=== PATIENT | female | born 1985 | race American Indian/Alaskan Native ===

== ENCOUNTER 2018-04-23 00:38 | Emergency (ER) | payer MEDICAID ==
[2018-04-23] MEDS ORDERED: ULTRAM PO ONE (03:23)
[2018-04-23] MEDS ORDERED: NACL 0.9% 1000 ML 1,000 ML IV ONE (03:41)
--- NOTE | 2018-04-23 03:41 | Emergency Department Report ---
ED General Adult HPI - General Chief complaint: Headache Stated complaint: HEAD AND CHEST PAINS CONSTIPATION Time Seen by Provider: 04/23/18 03:20 Source: patient Mode of arrival: Ambulatory Limitations: No Limitations - History of Present Illness Initial comments: pt is a 32 y/o aaf who presents for abd pain 4/10 aching cramping and constipation x 1 month symptoms are improved with bowel movement symptoms are exacerbated by movement palpation there is associated nausea no vomiting. Onset/Timin -: month(s) Location: abdomen Radiation: non-radiation Severity scale (0 -10): 3 Quality: aching, other (cramping) Consistency: constant Improves with: other (defication) Worsens with: movement Associated Symptoms: headaches Treatments Prior to Arrival: none - Related Data Previous Rx's Medication Instructions Recorded Last Taken Type Ibuprofen 800 mg PO TID PRN #30 tablet 04/23/18 Unknown Rx Nitrofurantoin Monohyd/M-Cryst 100 mg PO BID 7 Days #14 capsule 04/23/18 Unknown Rx [Macrobid 100 mg Capsule] Polyethylene Glycol 3350 [Miralax 17 gm PO BID PRN #14 packet 04/23/18 Unknown Rx 3350] Allergies Allergy/AdvReac Type Severity Reaction Status Date / Time codeine Allergy Hives Verified 04/23/18 00:43 ED Review of Systems ROS: Stated complaint: HEAD AND CHEST PAINS CONSTIPATION Other details as noted in HPI Constitutional: denies: chills, fever Eyes: denies: eye pain, eye discharge, vision change ENT: denies: ear pain, throat pain Respiratory: denies: cough, shortness of breath, wheezing Cardiovascular: denies: chest pain, palpitations Endocrine: no symptoms reported Gastrointestinal: abdominal pain, nausea, constipation. denies: vomiting, di arrhea, hematemesis, melena, hematochezia Genitourinary: hematuria. denies: urgency, dysuria, frequency, discharge, abnormal menses, dyspareunia Musculoskeletal: denies: joint swelling, arthralgia Skin: denies: rash, lesions Neurological: headache. denies: weakness, paresthesias Psychiatric: denies: anxiety, depression Hematological/Lymphatic: denies: easy bleeding, easy bruising ED Past Medical Hx - Past Medical History Previous Medical History?: Yes Hx Hypertension: Yes - Surgical History Past Surgical History?: Yes Hx Breast Surgery: Yes (reduction) - Social History Smoking Status: Never Smoker Substance Use Type: None - Medications Home Medications: Home Medications Medication Instructions Recorded Confirmed Last Taken Type Ibuprofen 800 mg PO TID PRN #30 tablet 04/23/18 Unknown Rx Nitrofurantoin Monohyd/M-Cryst 100 mg PO BID 7 Days #14 capsule 04/23/18 Unk nown Rx [Macrobid 100 mg Capsule] Polyethylene Glycol 3350 [Miralax 17 gm PO BID PRN #14 packet 04/23/18 Unknown Rx 3350] ED Physical Exam - General Limitations: No Limitations General appearance: alert, in no apparent distress - Head Head exam: Present: atraumatic, normocephalic - Eye Eye exam: Present: normal appearance, PERRL, EOMI Pupils: Present: normal accommodation - ENT ENT exam: Present: normal orophraynx, mucous membranes moist, TM's normal bilaterally, normal external ear exam - Neck Neck exam: Present: normal inspection, full ROM - Respiratory Respiratory exam: Present: normal lung sounds bilaterally. Absent: respiratory distress, wheezes, stridor, chest wall tenderness - Cardiovascular Cardiovascular Exam: Present: regular rate, normal rhythm, normal heart sounds. Absent: systolic murmur, diastolic murmur, rubs, gallop - GI/Abdominal GI/Abdominal exam: Present: soft, normal bowel sounds. Absent: distended, tenderness, guarding, rebound, rigid, organomegaly, mass, bruit, hernia - Rectal Rectal exam: Present: deferred - Extremities Exam Extremities exam: Present: normal inspection, full ROM, normal capillary refill. Absent: tenderness, pedal edema, joint swelling, calf tenderness - Back Exam Back exam: Present: normal inspection, full ROM, tenderness. Absent: CVA tenderness (R), CVA tenderness (L) - Neurological Exam Neurological exam: Present: alert, oriented X3, CN II-XII intact, reflexes normal. Absent: motor sensory deficit - Psychiatric Psychiatric exam: Present: normal affect, normal mood - Skin Skin exam: Present: warm, dry, intact, normal color. Absent: rash ED Course Vital Signs 04/23/18 00:40 Temperature 97.8 F Pulse Rate 87 Respiratory 18 Rate Blood Pressure 137/75 O2 Sat by Pulse 98 Oximetry ED Medical Decision Making - Lab Data Result diagrams: 04/23/18 03:28 04/23/18 03:28 Labs 04/23/18 04/23/18 04/23/18 02:00 03:28 03:28 WBC 10.4 RBC 4.52 Hgb 13.7 Hct 39.7 MCV 88 MCH 30 MCHC 34 RDW 13.2 Plt Count 289 Lymph % (Auto) 42.8 H [place] % (Auto) 6.0 Eos % (Auto) 1.3 Baso % (Auto) 2.0 H Lymph # 4.5 Benzie # 0.6 Eos # 0.1 Baso # 0.2 H Seg Neutrophils % 47.9 Seg Neutrophils # 5.0 Sodium 135 L Potassium 3.8 Chloride 97.4 L Carbon Dioxide 25 Anion Gap 16 BUN 12 Creatinine 0.7 Estimated GFR > 60 BUN/Creatinine Ratio 17 Glucose 96 Calcium 9.6 Total Bilirubin 0.30 AST 17 ALT 17 Alkaline Phosphatase 68 Total Protein 7.9 Albumin 4.5 Albumin/Globulin Ratio 1.3 Lipase 33 Urine Color Yellow Urine Turbidity Cloudy Urine pH 5.0 Ur Specific [place] 1.029 Urine Protein 30 mg/dl Urine Glucose (UA) Neg Urine Ketones Neg Urine Blood Neg Urine Nitrite Neg Urine Bilirubin Neg Urine Urobilinogen 2.0 Ur Leukocyte Esterase Tr Urine WBC (Auto) 8.0 H Urine RBC (Auto) 4.0 U Epithel Cells (Auto) 21.0 H Urine Bacteria (Auto) 1+ Urine Mucus 1+ Urine HCG, Qual Negative - Radiology Data Radiology results: report reviewed, image reviewed cc: MORENA SMITH NP Fluoro Time In Minutes: PROCEDURE: XR CHEST ROUTINE 2V TECHNIQUE: PA and lateral views of the chest were similar. HISTORY: chest pain COMPARISONS: 12/06/2017 FINDINGS: The heart size and mediastinum appear normal. The lungs are not congested. There are no infiltrates or effusions. The skeletal structures reveal a dextroscoliosis of the mid dorsal spine. IMPRESSION: No acute cardiopulmonary process.. This document is electronically signed by Barbie Wiseman MD., April 23 2018 04:39:19 AM ET Transcribed By: CHAPIN Dictated By: BARBIE WISEMAN MD Electronically Authenticated By: BARBIE WISEMAN MD Signed Date/Time: 04/23/18440 DD/ 0000 TD/TT: 04/23/18 0434 - Medical Decision Making kub: mod retained stool througout colon. Ua; mild wbd: 12 wbc: 8, Tr Kana, pt given ivfsx 1 liter in ed plan:Miralax , macrobid, Ibuprofen will dc to home in stable condtion in at this time. pt states pain improved pt will follow up with pcp in 2-3 day given referral to [facility] Critical care attestation.: If time is entered above; I have spent that time in minutes in the direct care of this critically ill patient, excluding procedure time. ED Disposition Clinical Impression: UTI (urinary tract infection) Qualifiers: Urinary tract infection type: acute cystitis Hematuria presence: without hematuria Qualified Code(s): N30.00 - Acute cystitis without hematuria Constipation Qualifiers: Constipation type: unspecified constipation type Qualified Code(s): K59.00 - Constipation, unspecified Disposition: DC-01 TO HOME OR SELFCARE Is pt being admited?: No Does the pt Need Aspirin: No Condition: Stable Instructions: Urinary Tract Infection in Women (ED) Prescriptions: Ibuprofen 800 mg PO TID PRN #30 tablet PRN Reason: pain Nitrofurantoin Monohyd/M-Cryst [Macrobid 100 mg Capsule] 100 mg PO BID 7 Days #14 capsule Polyethylene Glycol 3350 [Miralax 3350] 17 gm PO BID PRN #14 packet PRN Reason: Constipation Referrals: PRIMARY CARE, [Primary Care Provider] - 3-5 Days Forms: Work/School Release Form(ED) Time of Disposition: 05:25
[2018-04-23 03:49] LABS: Basophils # (Auto) 0.2 K/mm3 (0.0-0.1); Eosinophils # (Auto) 0.1 K/mm3 (0.0-0.4); Eosinophils % (Auto) 1.3 % (0.0-4.3); Hematocrit 39.7 % (30.3-42.9); Hemoglobin 13.7 gm/dl (10.1-14.3); Lymphocytes # (Auto) 4.5 K/mm3 (1.2-5.4); Lymphocytes % (Auto) 42.8 % (13.4-35.0); Mean Corpuscular HGB Conc 34 % (30-34); Mean Corpuscular Volume 88 fl (79-97); Monocytes # (Auto) 0.6 K/mm3 (0.0-0.8); Platelet Count 289 K/mm3 (140-440); Red Blood Count 4.52 M/mm3 (3.65-5.03); Red Cell Distribution Width 13.2 % (13.2-15.2)
[2018-04-23 04:04] LABS: Alanine Aminotransferase 17 units/L (7-56); Albumin 4.5 g/dL (3.9-5); BUN/Creatinine Ratio 17; Blood Urea Nitrogen 12 mg/dL (7-17); Calcium 9.6 mg/dL (8.4-10.2); Hemolysis Index 31
[2018-04-23 04:17] LABS: Bacteria,Urine 1+ /HPF (Negative); Bilirubin,Urine NEG (Negative); Blood,Urine NEG (Negative); Color,Urine Yellow (Yellow); Mucus,Urine 1+ /HPF
[2018-04-23 04:21] LABS: HCG Qualitative,Urine Negative (Negative)
--- NOTE | 2018-04-23 05:07 | XRay Report ---
PROCEDURE: XR ABDOMEN 1V AP TECHNIQUE: 2 AP supine views of the abdomen were obtained. HISTORY: abd pain COMPARISONS: None FINDINGS: The bowel gas pattern is normal. There is a moderate amount retained fecal content. There are no susp icious calcifications. The skeletal structures appear well maintained. IMPRESSION: Within normal limits.. This document is electronically signed by Loc Wiseman MD., April 23 2018 05:05:31 AM ET
[2018-04-23 05:38] VITALS: BP 119/80
== END 2018-04-23 05:37 | disposition home or self-care (01) ==
LOC: ED 00:38
DX: N30.00 Acute cystitis without hematuria (principal); K59.00 Constipation, unspecified; I10 Essential (primary) hypertension
CPT/HCPCS: 36415; 74018; 80053; 81001; 81025; 83690; 85025; 99284; J7030